=== PATIENT | male | born 1980 | race Caucasian/White ===

== ENCOUNTER → 2021-03-19 | Outpatient (RCR) | payer BC | END | disposition home or self-care (01) | PROVIDERS: ATTEND Family Medicine | DX: M54.2 Cervicalgia (principal) ==

== ENCOUNTER 2021-09-05 13:42 | Outpatient (RCR) | payer BC | END 2021-09-16 | disposition home or self-care (01) | DX: M54.2 Cervicalgia (principal); M25.519 Pain in unspecified shoulder ==

== ENCOUNTER 2021-10-11 09:43 | Outpatient (RCR) | payer BC | END 2021-10-17 | disposition home or self-care (01) | DX: M54.2 Cervicalgia (principal); M25.519 Pain in unspecified shoulder ==

== ENCOUNTER 2022-08-21 00:59 | Emergency (ER) | payer BC ==
[~2022-08-21] VITALS: Ht 175.3 cm; Wt 108.0 kg
[2022-08-21] MEDS ORDERED: KETOROLAC 30 MG/ML VIAL IVP STA (01:11)
[2022-08-21] MEDS ORDERED: LACTATED RINGERS 1,000 ML IV ONE (01:15)
[2022-08-21] MEDS ORDERED: ONDANSETRON 4 MG/2 ML (SDV) Z0FRAN IVP ONE ×2 (01:15→02:00)
[2022-08-21 01:19] LABS: BASOPHILS # (AUTO) 0.1 10^3/uL (0.0-0.1); BASOPHILS % (AUTO) 1 % (0-10); EOSINOPHILS # (AUTO) 0.1 10^3/uL (0.0-0.3); EOSINOPHILS % (AUTO) 1 % (0-10); HEMATOCRIT 43 % (40-54); HEMOGLOBIN 14.4 g/dL (13.3-17.7); LYMPHOCYTES # (AUTO) 2.7 10^3/uL (1.0-4.0); LYMPHOCYTES % (AUTO) 28 % (12-44); MEAN CORPUSCULAR HEMOGLOBIN 28 pg (25-34); MEAN CORPUSCULAR HGB CONC 34 g/dL (32-36); MEAN CORPUSCULAR VOLUME 85 fL (80-99); MEAN PLATELET VOLUME 10.8 fL (9.0-12.2); MONOCYTES # (AUTO) 0.7 10^3/uL (0.0-1.0); MONOCYTES % (AUTO) 8 % (0-12); NEUTROPHILS % (AUTO) 62 % (42-75); PLATELET COUNT 325 10^3/uL (130-400); WHITE BLOOD COUNT 9.6 10^3/uL (4.3-11.0)
--- NOTE | 2022-08-21 01:19 | ED Abdominal Pain ---
General Chief Complaint: General Problems/Pain Stated Complaint: RT LOWER QUADRANT PX Source of Information: Patient, Spouse History of Present Illness Date Seen by Provider: Aug 21, 2022 Time Seen by Provider: 01:08 Initial Comments PT ARRIVES VIA POV FROM HOME WITH C/O SUDDEN ONSET OF SEVERE RLQ PAIN RADIATION TO RIGHT FLANK, WHICH BEGAN AT 2330 PT WAS HAVING INTERCOURSE WHEN PAIN BEGAN. C/O NAUSEA AND VOMITED X 4 NO FEVER, BUT IS PROFUSELY SWEATING ON ARRIVAL NO URINARY SYMPTOMS,BUT IS UNABLE TO VOID ON ARRIVAL NO HISTORY OF SIMILAR PT'S ONLY MEDICAL PROBLEM IS HTN, AND TAKES METOPROLOL NO PRIOR SURGERIES PCP; DR. PAULSON Allergies and Home Medications Allergies Coded Allergies: No Known Drug Allergies (Unverified , 08/21/22) Patient Home Medication List Home Medication List Reviewed: Yes Hydrocodone/Acetaminophen (Hydrocodone-Acetamin 10-325 mg) 10 Mg-325 Mg Tablet, 1 EACH PO Q4H Prescribed by: OKSANA KRAMER on 08/21/22242 Ketorolac Tromethamine (Ketorolac Tromethamine) 10 Mg Tablet, 10 MG PO Q6H Prescribed by: OKSANA KRAMER on 08/21/22 024 Ondansetron (Ondansetron Odt) 8 Mg Tab.rapdis, 8 MG PO Q6H Prescribed by: OKSANA KRAMER on 08/21/22241 Tamsulosin HCl (Flomax) 0.4 Mg Cap, 0.4 MG PO DAILY Prescribed by: OKSANA KRAMER on 08/21/22241 Review of Systems Review of Systems Constitutional: see HPI, diaphoresis Respiratory: No Symptoms Reported Cardiovascular: No Symptoms Reported Gastrointestinal: See HPI, Abdominal Pain; Denies Constipated, Denies Diarrhea; Nausea, Vomiting Genitourinary: See HPI, Flank Pain Musculoskeletal: see HPI, back pain Skin: no symptoms reported Psychiatric/Neurological: No Symptoms Reported Endocrine: No Symptoms Reported Hematologic/Lymphatic: No Symptoms Reported Past Wxggmsv-Jagcyj-Hkzeia Hx Patient Social History Tobacco Use?: No Use of E-Cig and/or Vaping dev: No Substance use?: Yes Substance type: Marijuana Alcohol Use?: Yes Alcohol Frequency: Once in a while Past Medical History Surgeries: No Respiratory: No Cardiac: Yes Hypertension Neurological: No Genitourinary: No Gastrointestinal: No Musculoskeletal: No Endocrine: No HEENT: No Cancer: No Psychosocial: No Integumentary: No Blood Disorders: No Physical Exam Vital Signs Vital Signs - First Documented 08/21/22 01:06 Temp 35.7 Pulse 85 Resp 26 B/P (MAP) 185/113 (137) Pulse Ox 100 O2 Delivery Room Air Capillary Refill : Height/Weight/BMI Height: '" Weight: lbs. oz. kg; BMI Method: General Appearance: WD/WN, other (PT APPEARS TO BE IN PAIN, MOANING, LEANING OVER /BRACING HIMSELF ON THE ER CART. ) Respiratory: normal breath sounds, no respiratory distress, no accessory muscle use Cardiovascular: regular rate, rhythm, no murmur Gastrointestinal: soft; No distended, No guarding, No rebound; tenderness (RLQ AND R FLANK); No hernia, No mass Extremities: normal inspection, normal capillary refill Back: no vertebral tenderness, CVA tenderness (R) Neurologic/Psychiatric: no motor/sensory deficits, alert, oriented x 3 Skin: normal color, diaphoresis (WARM, DIAPHORETIC) Progress/Results/Core Measures Results/Orders Lab Results Laboratory Tests Test 08/21/22 01:09 08/21/22 02:09 Range/Units White Blood Count 9.6 4.3-11.0 10^3/uL Red Blood Count 5.08 4.30-5.52 10^6/uL Hemoglobin 14.4 13.3-17.7 g/dL Hematocrit 43 40-54 % Mean Corpuscular Volume 85 80-99 fL Mean Corpuscular Hemoglobin 28 25-34 pg Mean Corpuscular Hemoglobin Concent 34 32-36 g/dL Red Cell Distribution Width 12.8 10.0-14.5 % Platelet Count 325 130-400 10^3/uL Mean Platelet Volume 10.8 9.0-12.2 fL Immature Granulocyte % (Auto) 0 % Neutrophils (%) (Auto) 62 42-75 % Lymphocytes (%) (Auto) 28 12-44 % Monocytes (%) (Auto) 8 0-12 % Eosinophils (%) (Auto) 1 0-10 % Basophils (%) (Auto) 1 0-10 % Neutrophils # (Auto) 6.0 1.8-7.8 10^3/uL Lymphocytes # (Auto) 2.7 1.0-4.0 10^3/uL Monocytes # (Auto) 0.7 0.0-1.0 10^3/uL Eosinophils # (Auto) 0.1 0.0-0.3 10^3/uL Basophils # (Auto) 0.1 0.0-0.1 10^3/uL Immature Granulocyte # (Auto) 0.0 0.0-0.1 10^3/uL Sodium Level 142 135-145 MMOL/L Potassium Level 3.9 3.6-5.0 MMOL/L Chloride Level 106 98-107 MMOL/L Carbon Dioxide Level 22 21-32 MMOL/L Anion Gap 14 5-14 MMOL/L Blood Urea Nitrogen 8 7-18 MG/DL Creatinine 1.06 0.60-1.30 MG/DL Estimat Glomerular Filtration Rate 90 BUN/Creatinine Ratio 8 Glucose Level 131 H 70-105 MG/DL Calcium Level 9.7 8.5-10.1 MG/DL Corrected Calcium 9.3 8.5-10.1 MG/DL Total Bilirubin 0.4 0.1-1.0 MG/DL Aspartate Amino Transf (AST/SGOT) 21 5-34 U/L Alanine Aminotransferase (ALT/SGPT) 23 0-55 U/L Alkaline Phosphatase 79 40-136 U/L Total Protein 7.8 6.4-8.2 GM/DL Albumin 4.5 3.2-4.5 GM/DL Lipase 44 8-78 U/L Serum Alcohol < 10 <10 MG/DL Urine Color YELLOW Urine Clarity CLOUDY Urine pH 8.5 5-9 Urine Specific [place] 1.015 L 1.016-1.022 Urine Protein TRACE H NEGATIVE Urine Glucose (UA) NEGATIVE NEGATIVE Urine Ketones NEGATIVE NEGATIVE Urine Nitrite NEGATIVE NEGATIVE Urine Bilirubin NEGATIVE NEGATIVE Urine Urobilinogen 0.2 < = 1.0 MG/DL Urine Leukocyte Esterase NEGATIVE NEGATIVE Urine RBC (Auto) 3+ H NEGATIVE Urine RBC TNTC H /HPF Urine WBC 0-2 /HPF Urine Crystals PRESENT H /LPF Urine Amorphous Sediment LARGE LIZBET PHOSPHATE H /LPF Urine Bacteria TRACE /HPF Urine Casts NONE /LPF Urine Mucus NEGATIVE /LPF Urine Culture Indicated NO Urine Opiates Screen NEGATIVE NEGATIVE Urine Oxycodone Screen NEGATIVE NEGATIVE Urine Methadone Screen NEGATIVE NEGATIVE Urine Propoxyphene Screen NEGATIVE NEGATIVE Urine Barbiturates Screen NEGATIVE NEGATIVE Ur Tricyclic Antidepressants Screen NEGATIVE NEGATIVE Urine Phencyclidine Screen NEGATIVE NEGATIVE Urine Amphetamines Screen NEGATIVE NEGATIVE Urine Methamphetamines Screen NEGATIVE NEGATIVE Urine Benzodiazepines Screen NEGATIVE NEGATIVE Urine Cocaine Screen NEGATIVE NEGATIVE Urine Cannabinoids Screen POSITIVE H NEGATIVE My Orders Orders - OKSANA KRAMER DO Ed Iv/Invasive Line Start (08/21/22 01:11) Monitor-Rhythm Ecg Trace Only (08/21/22 01:11) Ct Abd/Pelvis Wo(Kidney Stone) (08/21/22 01:11) Abdomen/Kub 1[place] (08/21/22 01:11) Alcohol (08/21/22 01:11) Cbc With Automated Diff (08/21/22 01:11) Comprehensive Metabolic Panel (08/21/22 01:11) Drug Screen Stat (Urine) (08/21/22 01:11) Lipase (08/21/22 01:11) Ua Culture If Indicated (08/21/22 01:11) Ed Iv/Invasive Line Start (08/21/22 01:11) Lactated Ringers (Lr 1000 Ml Iv Solution (08/21/22 01:15) Ondansetron Injection (Zofran Injectio (08/21/22 01:15) Ketorolac Injection (Toradol Injection) (08/21/22 01:11) Morphine Injection (Morphine Injection (08/21/22 01:54) Ondansetron Injection (Zofran Injectio (08/21/22 02:00) Tamsulosin Capsule (Flomax Capsule) (08/21/22 02:15) Rx-Hydrocodone/Apap 5-325 Mg (Rx-Vicodin (08/21/22 02:15) Rx-Ondansetron Po (Rx-Zofran Po) (08/21/22 02:15) Promethazine Injection (Phenergan Injec (08/21/22 02:45) Morphine Injection (Morphine Injection (08/21/22 02:43) Medications Given in ED Current Medications Medications Dose Ordered Sig/Marium Route Start Time Stop Time Status Last Admin Dose Admin Acetaminophen/ Hydrocodone Bitart 1 ea Q4H PRN PO 08/21/22 02:15 08/21/22 02:36 1 EA Lactated Ringer's 1,000 ml @ 0 mls/hr Q0M ONCE IV 08/21/22 01:15 08/21/22 01:16 DC 08/21/22 01:22 0 MLS/HR Ondansetron HCl 4 mg ONCE ONCE IVP 08/21/22 01:15 08/21/22 01:16 DC 08/21/22 01:22 4 MG Ondansetron HCl 4 mg ONCE ONCE IVP 08/21/22 02:00 08/21/22 02:01 DC 08/21/22 02:05 4 MG Promethazine HCl 25 mg ONCE ONCE IVP 08/21/22 02:45 08/21/22 02:46 DC 08/21/22 02:50 25 MG Vital Signs/I&O 08/21/22 01:06 Temp 35.7 Pulse 85 Resp 26 B/P (MAP) 185/113 (137) Pulse Ox 100 O2 Delivery Room Air Progress Progress Note : Progress Note GIVEN: -IV FLUIDS -ZOFRAN -TORADOL -MORPHINE -FLOMAX -PHENERGAN SYMPTOMS MUCH IMPROVED AT DISMISSAL LABS INCLUDING CBC, CMP, UA ORDERED, IN ADDITION TO ABD XRAY AND CT ABDOMEN/PELVIS UA WITH LARGE AMOUNT OF BLOOD, TRACE BACTERIA, NO NITRITES, NO LEUKOCYTES, 0-2 WBC'S CBC AND CMP UNREMARKABLE VITALS STABLE--BP 149/93, HR 70 AT DISMISSAL NO DETERIORATION IN PT'S CONDITION DURING ER STAY DISCUSSED TEST RESULTS, ANTICIPATED COURSE, SYMPTOMATIC TREATMENT, MEDICATIONS, NEED FOR FOLLOW UP WITH UROLOGIST, AND RETURN PRECAUTIONS PT STATES THAT HE HAS SEEN DR PAUL, UROLOGIST IN [place], FOR UNRELATED PROBLEM. Diagnostic Imaging Comments ABD XRAY--PENDING RADIOLOGIST REVIEW -CALCIFICATION IN RIGHT PELVIS CT ABDOMEN/PELVIS--PER [facility] VIA FAXA AT 0209 -MILD TO MODERATE RIGHT SIDED HYDRONEPHROSIS AND HYDROURETER -APPEARS TO BE A DISTAL RIGHT URETERAL STONE JUST PROXIMAL TO UVJ MEASURING 2 X 2 MM. ALTERNATIVELY, THIS MAY REFLECT A TRI-URETERAL PHLEBOLITH. Reviewed: Reviewed by Me Departure Impression Primary Impression: Right ureteral stone Disposition: HOME, SELF-CARE Condition: Improved Departure-Patient Inst. Decision time for Depature: 02:30 Referrals: JOSE MARTIN PAULSON MD (PCP/Family) Primary Care Physician Patient Instructions: How to Strain Your Urine, Kidney Stone, Adult ED Add. Discharge Instructions: LOTS OF CLEAR LIQUIDS STRAIN ALL URINE--RETURN ANY STONES TO UROLOGIST OFFICE FOLLOW UP WITH YOUR UROLOGIST SOON POSSIBLE--CALL IN THE MORNING TO SCHEDULE AN APPOINTMENT, RETURN TO ER IF SYMPTOMS WORSEN All discharge instructions reviewed with patient and/or family. Voiced understanding. Scripts Ketorolac Tromethamine (Ketorolac Tromethamine) 10 Mg Tablet 10 MG PO Q6H for Pain, #15 TAB Prov: OKSANA KRAMER DO 08/21/22 Ondansetron (Ondansetron Odt) 8 Mg Tab.rapdis 8 MG PO Q6H, #15 TAB Prov: OKSANA KRAMER DO 08/21/22 Hydrocodone/Acetaminophen (Hydrocodone-Acetamin 10-325 mg) 10 Mg-325 Mg Tablet 1 EACH PO Q4H for Pain, #15 TAB Prov: OKSANA KRAMER DO 08/21/22 Tamsulosin HCl (Flomax) 0.4 Mg Cap 0.4 MG PO DAILY, #10 CAP Prov: OKSANA KRAMER DO 08/21/22 OKSANA KRAMER DO Aug 21, 2022 01:19
[2022-08-21 01:29] LABS: ALBUMIN 4.5 GM/DL (3.2-4.5); CHLORIDE 106 MMOL/L (98-107); POTASSIUM 3.9 MMOL/L (3.6-5.0); SODIUM 142 MMOL/L (135-145)
[2022-08-21 01:30] LABS: CALCIUM 9.7 MG/DL (8.5-10.1)
[2022-08-21 01:31] LABS: GLUCOSE 131 MG/DL (70-105)
[2022-08-21 01:32] LABS: TOTAL PROTEIN 7.8 GM/DL (6.4-8.2)
[2022-08-21 01:33] LABS: CARBON DIOXIDE 22 MMOL/L (21-32)
[2022-08-21 01:34] LABS: BILIRUBIN,TOTAL 0.4 MG/DL (0.1-1.0)
[2022-08-21 01:35] LABS: ALKALINE PHOSPHATASE 79 U/L (40-136); CREATININE SERUM 1.06 MG/DL (0.60-1.30); GFR ESTIMATED 90
[2022-08-21 01:36] LABS: BUN/CREATININE RATIO 8
[2022-08-21 01:38] LABS: ALANINE AMINOTRANSFERASE 23 U/L (0-55); LIPASE 44 U/L (8-78)
[2022-08-21] MEDS ORDERED: morphine INJ 10 MG/ML 1ML (SYR OR VIAL) IVP STA ×2 (01:54→02:43)
[2022-08-21] MEDS ORDERED: TAMSULOSIN 0.4 MG (FLOMAX) CAP PO SCH (02:15)
[2022-08-21] MEDS ORDERED: RX-ONDANSETRON 4 MG ODT (ZOFRAN) PPK #4 PO STA (02:15)
[2022-08-21 02:16] LABS: BILIRUBIN,URINE NEGATIVE (NEGATIVE); CLARITY,URINE CLOUDY; COLOR,URINE YELLOW; GLUCOSE, URINE (UA) NEGATIVE (NEGATIVE); KETONES,URINE NEGATIVE (NEGATIVE); LEUKOCYTE ESTERASE ,URINE NEGATIVE (NEGATIVE); NITRITE,URINE NEGATIVE (NEGATIVE); PH,URINE 8.5 (5-9); PROTEIN,URINE TRACE (NEGATIVE)
[2022-08-21 02:27] LABS: AMORPHOUS SEDIMENT,UR LARGE AMOR PHOSPHATE /LPF; BACTERIA,URINE TRACE /HPF; RBC,URINE TNTC /HPF; WBC,URINE 0-2 /HPF
[2022-08-21 02:28] LABS: AMPHETAMINE SCREEN, URINE NEGATIVE (NEGATIVE); BARBITURATE SCREEN URINE NEGATIVE (NEGATIVE); BENZODIAZEPINES SCREEN URINE NEGATIVE (NEGATIVE); CANNABINOID SCREEN, URINE POSITIVE (NEGATIVE); COCAINE SCREEN URINE NEGATIVE (NEGATIVE); METHADONE STAT NEGATIVE (NEGATIVE); OPIATE SCREEN URINE NEGATIVE (NEGATIVE); OXYCODONE STAT NEGATIVE (NEGATIVE); PROPOXYPHENE STAT NEGATIVE (NEGATIVE); TRICYCLIC ANTIDEPRESSANTS SCRE NEGATIVE (NEGATIVE)
[2022-08-21] MEDS ORDERED: TMSL.4C PO (02:42)
[2022-08-21] MEDS ORDERED: KETO10TA PO (02:42)
[2022-08-21] MEDS ORDERED: ONDA8TAB13 PO (02:42)
[2022-08-21] MEDS ORDERED: HYDR-3820 PO (02:42)
[2022-08-21] MEDS ORDERED: PROMETHAZINE INJ 25 MG/ML (PHENERGAN) AMP IVP ONE (02:45)
[2022-08-21 03:10] VITALS: BP 143/93
--- NOTE | 2022-08-21 06:47 | Diagnostic Imaging Report ---
INDICATION: Abdominal pain. COMPARISON: CT abdomen pelvis from earlier same day FINDINGS: 2 frontal radiographic views of the abdomen were obtained. Small bowel loops are nondilated. There is no large collection of free peritoneal air. Mild to moderate colonic air and stool is noted. No unexpected radiopaque foreign bodies are seen. There is subtle 3 mm calculus projecting over the right pelvis, which may correspond to distal ureteral calculus seen on CT from earlier same day. IMPRESSION: 1. Redemonstration distal right ureteral calculus. 2. Mild to moderate colonic air and stool. Please correlate for constipation. Dictated by: Dictated on workstation # [id number]
--- NOTE | 2022-08-21 07:43 | Diagnostic Imaging Report ---
PROCEDURE: CT urinary tract, rule out kidney stone. TECHNIQUE: Multiple contiguous axial images were obtained through the abdomen and pelvis without the use of intravenous contrast. Auto Exposure Controls were utilized during the CT exam to meet ALARA standards for radiation dose reduction. INDICATION: Right flank pain. FINDINGS: There is a very mild degree of right-sided hydroureteronephrosis secondary to a distal right ureteral calculus seen best image 161 measuring 3 mm found about 1 cm proximal to the right ureterovesical junction. No urinoma or fluid collection. The bladder itself appeared normal. There is air-containing well visualized normal appendix. No additional radiodense urolithiasis. The left kidney normal. There is a tiny hiatal hernia. Lung bases clear. Liver, gallbladder, bile ducts, spleen, adrenals and pancreas all unremarkable. The aorta is nonaneurysmal. There is no ileus or bowel obstruction. There is no pneumatosis or free gas. No ascites, abscess, hematoma or acute fluid collection. IMPRESSION: 1. 3 mm distal right ureteral stone results in very mild upstream right-sided hydroureteronephrosis. 2. No other significant finding. Dictated by: Dictated on workstation # [id number]
== END 2022-08-21 03:10 | disposition home or self-care (01) ==
LOC: EDUNIT# 00:59 → ER 01:02
DX: N13.2 Hydronephrosis with renal and ureteral calculous obstruction (principal); I10 Essential (primary) hypertension; Z79.899 Other long term (current) drug therapy
CPT/HCPCS: 74018; 74176; 80053; 80306; 81000; 83690; 85025; 93041; 99284; G0480; 36415; 80320

== ENCOUNTER → 2022-09-18 | Outpatient (CLI) | payer BC ==
[~2022-09-18] MED LIST: HYDR-3820 PO; KETO10TA PO; ONDA8TAB13 PO; TMSL.4C PO
--- NOTE | 2022-09-18 17:39 | Diagnostic Imaging Report ---
INDICATION: Right ankle pain COMPARISON: None TECHNIQUE: 2 views of the right ankle FINDINGS: No acute fracture is seen in the right ankle. Alignment appears normal. Ankle mortise appears symmetric on these 2 views. There is no significant joint effusion. There is a small posterior calcaneal enthesophyte. IMPRESSION: 1. No acute osseous abnormality is seen in the right ankle. Dictated by: Dictated on workstation # [id number]
== END ==
LOC: RAD 17:14
PROVIDERS: ATTEND Nurse Practitioner Family
DX: M25.571 Pain in right ankle and joints of right foot (principal); N20.0 Calculus of kidney; F33.42 Major depressive disorder, recurrent, in full remission
CPT/HCPCS: 73600